=== PATIENT | female | born 1995 | race Hispanic/Latino ===

== ENCOUNTER 2023-05-07 11:04 | Emergency (ER) | payer SELFPAY ==
[~2023-05-07] VITALS: Ht 162.6 cm; Wt 75.0 kg
[2023-05-07 13:16] VITALS: BP 103/65
[2023-05-07 13:45] VITALS: BP 114/59
[2023-05-07 14:00] VITALS: BP 104/67
[2023-05-07] MEDS ORDERED: NAPROXEN500 MG PO (14:05)
[2023-05-07 14:15] VITALS: BP 121/73
[2023-05-07 14:30] VITALS: BP 110/70
[2023-05-07 14:35] VITALS: BP 110/70
== END 2023-05-07 14:51 | disposition home or self-care (01) | DRG 605 ==
LOC: ED 11:04
DX: S00.83XA Contusion of other part of head, initial encounter (principal); Y04.8XXA Assault by other bodily force, initial encounter